=== PATIENT | male | born 1960 | race Caucasian/White ===

== ENCOUNTER 2021-04-22 09:32 | Inpatient (IN) ==
[2021-04-22] MEDS ORDERED: Ondansetron 4 MG/2 ML VIAL IVP ONE (09:55)
[2021-04-22] MEDS ORDERED: 0.9 % Sodium Chloride 1,000 ML IVC ONE (09:55)
[2021-04-22] MEDS ORDERED: *HR* Rocuronium Bromide 100 MG/10 ML VIAL IVP ONE (09:56)
[2021-04-22] MEDS ORDERED: *HR* Etomidate 20 MG/10 ML AMPUL IVP ONE (09:56)
[2021-04-22 10:12] LABS: Basophils % 0.4 %; Eosinophils # 0.1 K/mcL (0.0-0.6); Eosinophils % 0.8 %; Hematocrit 47.1 % (37.5-50.1); Hemoglobin 16.2 g/dL (12.9-16.9); Immature Granulocytes % 0.6 % (0-4); Lymphocytes # 0.5 K/mcL (0.6-4.6); Lymphocytes % 6.6 %; Mean Corpuscular HGB Conc 34.4 g/dL (31.6-35.5); Mean Corpuscular Hemoglobin 34.1 pg (28.0-33.3); Mean Corpuscular Volume 99.2 fL (83.0-100.0); Mean Platelet Volume 11.7 fL (9.4-12.4); Monocytes # 0.2 K/mcL (0.0-1.3); Monocytes % 2.3 %; Neutrophils # 7.4 K/mcL (1.6-8.9); Platelet Count 152 K/mcL (140-400); Red Blood Count 4.75 M/mcL (4.19-5.50); Red Cell Distribution Width 16.5 % (11.5-14.5); Segmented Neutrophils % 89.3 %; White Blood Count 8.2 K/mcL (4.3-11.1)
[2021-04-22 10:15] LABS: VBG HCO3 20 mEq/L (21-27); VBG PCO2 34 mmHg (41-51); VBG PH 7.37 pH Units (7.32-7.42); VBG PO2 39 mmHg (25-50)
[2021-04-22 10:20] LABS: Prothrombin Time 22.2 Seconds (9.4-12.1)
[2021-04-22 10:23] LABS: Activated Partial Thrombo Time 42.9 Seconds (26.0-36.0)
[2021-04-22 10:55] LABS: Influenza A PCR Negative (Negative); Influenza B PCR Negative (Negative); Resp. Syncytial Virus PCR Negative (Negative)
[2021-04-22 10:56] LABS: SARS-CoV-2 by PCR (In House) Negative (Negative)
[2021-04-22 11:15] LABS: Alanine Aminotransferase 878 Units/L (7-52); Albumin 2.8 g/dL (3.5-5.7); Albumin/Globulin Ratio 0.9 (1.1-2.2); Alkaline Phosphatase 237 Units/L (34-104); Aspartate Amino Transferase 702 Units/L (13-39); BUN/Creatinine Ratio 15 (6-26); Bilirubin,Direct 11.2 mg/dL (0.0-0.2); Bilirubin,Total 17.2 mg/dL (0.3-1.0); Blood Urea Nitrogen 115 mg/dL (8-23); Calcium 8.2 mg/dL (8.6-10.3); Carbon Dioxide 18 mEq/L (23-29); Chloride 94 mEq/L (98-107); Globulin 3.2 g/dL (2.4-3.5); Glucose 107 mg/dL (70-105); Lipase 180 Units/L (11-82); Osmolality,Calculated 309 (280-300); Potassium 5.3 mEq/L (3.5-5.1); Sodium 131 mEq/L (136-145); eGFR For African Americans 9 (> 60); eGFR For Non-African Americans 7 (> 60)
[2021-04-22] MEDS ORDERED: 0.9 % Sodium Chloride 2,000 ML IVC ONE (11:30)
[2021-04-22] MEDS ORDERED: Acetylcysteine 15,000 MG in D5% in Water 250 ML IVC ONE (14:39)
[2021-04-22 15:16] LABS: Acetaminophen < 10 mcg/mL (10-20); Ethanol < 10 mg/dL (Less than 10)
[2021-04-22 15:49] LABS: Hepatitis B Surface Antigen Nonreactive (Nonreactive)
[2021-04-22 15:51] LABS: Lyme Disease Total Antibody Negative (Negative)
[2021-04-22] MEDS ORDERED: Acetylcysteine 5,000 MG in D5% in Water 500 ML IVC ONE (16:00)
[2021-04-22 16:19] LABS: Hepatitis B Core IgM Nonreactive (Nonreactive); Hepatitis C Virus Antibody Nonreactive (Nonreactive)
[2021-04-22 16:20] LABS: Hepatitis A Antibody IgM Nonreactive (Nonreactive)
[2021-04-22] MEDS ORDERED: Morphine Sulfate 2 MG/ML SYRINGE IVP ONE (16:22)
[2021-04-22] MEDS ORDERED: *HR* HYDROmorphone (PF) 1 MG/ML SYRINGE IVP ONE (17:58)
[2021-04-22 18:27] LABS: Troponin I 0.23 ng/mL (< 0.04)
[2021-04-22] MEDS ORDERED: Acetylcysteine 10,000 MG in D5% in Water 1,000 ML IVC ONE (20:15)
[2021-04-22] MEDS ORDERED: Pantoprazole 40 MG VIAL IVP ONE (21:11)
[2021-04-23] MEDS ORDERED: *HR* HYDROmorphone (PF) 1 MG/ML SYRINGE IVP ONE (00:20)
[2021-04-23 05:49] LABS: Bilirubin,Urine Large (Negative); Blood,Urine Moderate (Negative); Clarity,Urine Cloudy (Clear); Glucose,Urine (UA) Normal (Normal); Ketones,Urine Trace mg/dL (Negative); Leukocyte Esterase,Urine Trace (Negative); Nitrite,Urine Negative (Negative); PH,Urine 5.5 pH Units (5.0-8.0); Protein,Urine >=300 mg/dL (Neg-Trace); Urobilinogen,Urine Normal (Normal)
[2021-04-23 05:50] LABS: Color,Urine Dark Yellow (Yellow)
[2021-04-23 05:51] LABS: Bacteria,Urine Many per hpf (None-Few); Squamous Epithelial Cell,Urine Many per hpf (None-Few)
[2021-04-23 05:52] LABS: Budding Yeast,Urine Moderate per hpf (None Seen)
[2021-04-23 05:56] LABS: Amphetamine Screen,Urine Negative ng/mL (Cutoff=1000); Barbiturate Screen,Urine Negative ng/mL (Cutoff=200); Benzodiazepines Screen,Urine Negative ng/mL (Cutoff=200); Cannabinoid Screen,Urine Negative ng/mL (Cutoff = 50); Cocaine Screen,Urine Negative ng/mL (Cutoff= 300); Opiate Screen,Urine Negative ng/mL (Cutoff=300); Phencyclidine Screen,Urine Negative ng/mL (Cutoff=25)
[2021-04-23] MEDS ORDERED: Norepinephrine 4 MG/254 ML IV.SOLN IVC SCH (07:30)
[2021-04-23] MEDS ORDERED: Piperacillin/Tazobactam 3.375 GM in 0.9 % Sodium Chloride Mini Bag 100 ML IVPB ONE (07:41)
[2021-04-23 07:42] LABS: Basophils % 0.5 %; Eosinophils % 0.1 %; Hematocrit 45.5 % (37.5-50.1); Hemoglobin 14.8 g/dL (12.9-16.9); Lymphocytes # 0.3 K/mcL (0.6-4.6); Lymphocytes % 4.1 %; Mean Corpuscular HGB Conc 32.5 g/dL (31.6-35.5); Mean Corpuscular Hemoglobin 33.7 pg (28.0-33.3); Mean Corpuscular Volume 103.6 fL (83.0-100.0); Mean Platelet Volume 11.5 fL (9.4-12.4); Monocytes # 0.4 K/mcL (0.0-1.3); Monocytes % 5.5 %; Neutrophils # 6.5 K/mcL (1.6-8.9); Platelet Count 150 K/mcL (140-400); Red Blood Count 4.39 M/mcL (4.19-5.50); Red Cell Distribution Width 17.6 % (11.5-14.5); Segmented Neutrophils % 88.8 %; White Blood Count 7.3 K/mcL (4.3-11.1)
[2021-04-23] MEDS ORDERED: Cefepime HCl 2,000 MG in Water for inj. (sterile) 10 ML IVP ONE (07:42)
[2021-04-23] MEDS ORDERED: *HR* Heparin 5,000 UNIT/ML VIAL IVP PRN ×3 (07:42→15:42)
[2021-04-23] MEDS ORDERED: *HR* Heparin 5,000 UNIT/ML VIAL IVP ONE (07:42)
[2021-04-23] MEDS ORDERED: Heparin 25,000UNIT/250ML 1/2NS 25,000 UNIT/250 ML IV.SOLN IVC SCH (07:45)
[2021-04-23 08:02] LABS: Heparin anti-factor XA UFH < 0.04 IU/mL (0.30-0.70)
[2021-04-23 08:03] LABS: INR 2.6; Prothrombin Time 28.4 Seconds (9.4-12.1)
[2021-04-23] MEDS ORDERED: Vancomycin 1,750 MG/517.5 ML IV.SOLN IVPB ONE (08:03)
[2021-04-23 08:17] LABS: Alanine Aminotransferase 760 Units/L (7-52); Albumin 2.2 g/dL (3.5-5.7); Albumin/Globulin Ratio 0.8 (1.1-2.2); Alkaline Phosphatase 199 Units/L (34-104); Aspartate Amino Transferase 533 Units/L (13-39); Blood Urea Nitrogen > 130 mg/dL (8-23); Calcium 6.7 mg/dL (8.6-10.3); Carbon Dioxide 8 mEq/L (23-29); Chloride 93 mEq/L (98-107); Globulin 2.6 g/dL (2.4-3.5); Glucose 139 mg/dL (70-105); Potassium 6.1 mEq/L (3.5-5.1); Sodium 132 mEq/L (136-145); Total Protein 4.8 g/dL (6.4-8.9); Troponin I 0.45 ng/mL (< 0.04); eGFR For African Americans 7 (> 60); eGFR For Non-African Americans 6 (> 60)
[2021-04-23 08:32] LABS: VBG HCO3 8 mEq/L (21-27); VBG PCO2 30 mmHg (41-51); VBG PH 7.03 pH Units (7.32-7.42); VBG PO2 80 mmHg (25-50)
[2021-04-23] MEDS ORDERED: Insulin Human Regular 10 UNIT in 0.9 % Sodium Chloride 10 ML IV ONE (09:05)
[2021-04-23] MEDS ORDERED: Insulin Regular, Human 100 UNIT/ML ONE (09:13)
[2021-04-23] MEDS ORDERED: FentaNYL (PF) 1,000 MCG/100 ML IV.SOLN IVC SCH (09:15)
[2021-04-23] MEDS ORDERED: *HR* Dextrose 50 % in Water (Syg) 50 ML SYRINGE IVP ONE (09:57)
[2021-04-23] MEDS ORDERED: EPINEPHrine 1 MG in D5% in Water 250 ML IVC SCH (10:00)
[2021-04-23] MEDS ORDERED: Vasopressin 40 UNIT in D5% in Water 100 ML IVC SCH (10:00)
[2021-04-23] MEDS ORDERED: Hydrocortisone Sodium Succ 100 MG/2 ML VIAL IVP ONE (10:15)
[2021-04-23] MEDS: Albumin 25% 25gram/100mL 25 GM/100 ML IV.SOLN IVC SCH ×4 (10:34→11:24)
[2021-04-23] MEDS: Norepinephrine 8 MG/258 ML IV.SOLN IVC SCH ×2 (11:15→17:27)
[2021-04-23] MEDS: Sodium Bicarbonate 150 MEQ in D5% in Water 1,000 ML IVC SCH ×2 (11:20→16:18)
[2021-04-23] MEDS ORDERED: *HR* Heparin 5,000 UNIT/ML VIAL ONE ×2 (11:50→12:32)
[2021-04-23] MEDS ORDERED: *HR* FentaNYL (PF) 100 MCG/2 ML VIAL ONE (12:00)
[2021-04-23] MEDS ORDERED: 0.9 % Sodium Chloride 1,000 ML ONE ×2 (12:39→14:40)
[2021-04-23] MEDS ORDERED: Dexmedetomidine HCl 400 MCG/100 ML MLS IVC ONE (12:59)
[2021-04-23] MEDS ORDERED: Dexmedetomidine HCl 400 MCG/100 ML MLS IVC SCH (13:00)
[2021-04-23] MEDS ORDERED: Isovue-370 500 ML BOTTLE IVP ONE (13:11)
[2021-04-23] MEDS ORDERED: Phenylephrine 10 MG in 0.9 % Sodium Chloride 250 ML IVC SCH (13:30)
[2021-04-23 13:43] LABS: Hematocrit 34.9 % (37.5-50.1); Mean Corpuscular HGB Conc 32.7 g/dL (31.6-35.5); Mean Corpuscular Hemoglobin 34.2 pg (28.0-33.3); Mean Corpuscular Volume 104.8 fL (83.0-100.0); Mean Platelet Volume 11.5 fL (9.4-12.4); Nucleated Red Blood Cells 1.6 /100 WBC (0); Platelet Count 115 K/mcL (140-400); Red Blood Count 3.33 M/mcL (4.19-5.50); Red Cell Distribution Width 17.2 % (11.5-14.5); White Blood Count 3.8 K/mcL (4.3-11.1)
[2021-04-23 13:44] LABS: Hemoglobin 11.4 g/dL (12.9-16.9)
[2021-04-23 13:56] LABS: VBG HCO3 13 mEq/L (21-27); VBG Ionized Calcium 0.74 mmol/L (1.15-1.35); VBG PCO2 48 mmHg (41-51); VBG PH 7.03 pH Units (7.32-7.42); VBG PO2 73 mmHg (25-50)
[2021-04-23] MEDS ORDERED: Piperacillin/Tazobactam 3.375 GM in 0.9 % Sodium Chloride Mini Bag 100 ML IVPB SCH (14:00)
[2021-04-23] MEDS ORDERED: Calcium Gluconate 1gm/50mL 1 GM/50 ML BAG IVPB ONE (14:10)
[2021-04-23 14:17] LABS: Activated Partial Thrombo Time > 360.0 Seconds (26.0-36.0); INR 5.1; Prothrombin Time 56.3 Seconds (9.4-12.1)
[2021-04-23 14:18] LABS: D-Dimer 20329 ng/mLFEU (0-500)
[2021-04-23 14:26] LABS: Lymphocytes # 1.4 K/mcL (0.6-4.6); Monocytes # 0.2 K/mcL (0.0-1.3); Neutrophils # 2.3 K/mcL (1.6-8.9); Platelet Estimate Decreased (Normal)
[2021-04-23 14:36] LABS: Acetaminophen < 10 mcg/mL (10-20); Alanine Aminotransferase 708 Units/L (7-52); Albumin 3.2 g/dL (3.5-5.7); Alkaline Phosphatase 174 Units/L (34-104); Aspartate Amino Transferase 701 Units/L (13-39); BUN/Creatinine Ratio 13 (6-26); Bilirubin,Direct 7.1 mg/dL (0.0-0.2); Bilirubin,Indirect 4.2 mg/dL (0.0-1.0); Bilirubin,Total 11.3 mg/dL (0.3-1.0); Blood Urea Nitrogen 126 mg/dL (8-23); Carbon Dioxide 12 mEq/L (23-29); Chloride 91 mEq/L (98-107); Ethanol < 10 mg/dL (Less than 10); Ferritin > 1500 ng/mL (20-250); Globulin 1.6 g/dL (2.4-3.5); Glucose 142 mg/dL (70-105); Lipase 491 Units/L (11-82); Magnesium 3.2 mg/dL (1.6-2.6); Osmolality,Calculated 323 (280-300); Phosphorous 12.8 mg/dL (2.7-4.5); Potassium 6.9 mEq/L (3.5-5.1); Salicylate < 2.5 mg/dL (15.0-30.0); Sodium 135 mEq/L (136-145); Total Protein 4.8 g/dL (6.4-8.9); eGFR For African Americans 7 (> 60); eGFR For Non-African Americans 6 (> 60)
[2021-04-23] MEDS ORDERED: Calcium Chloride 1,000 MG in 0.9 % Sodium Chloride 100 ML IVPB ONE (14:57)
[2021-04-23 15:16] LABS: Activated Partial Thrombo Time > 360.0 Seconds (26.0-36.0); Prothrombin Time 55.5 Seconds (9.4-12.1)
[2021-04-23 15:17] LABS: D-Dimer 20754 ng/mLFEU (0-500)
[2021-04-23] MEDS ORDERED: Phenylephrine 50 MG in 0.9 % Sodium Chloride 250 ML IVC SCH (15:30)
[2021-04-23] MEDS ORDERED: Calcium Gluconate 1gm/50mL 1 GM/50 ML BAG IVPB PRN ×2 (15:42)
[2021-04-23] MEDS ORDERED: Calcium Chloride 4,000 MG in 0.9 % Sodium Chloride 1,000 ML CRRT SCH (15:45)
[2021-04-23] MEDS ORDERED: SODIUM CITRATE 500 ML CRRT SCH (15:45)
[2021-04-23] MEDS ORDERED: CALCIUM CHLORIDE CRRT SCH (15:45)
[2021-04-23] MEDS ORDERED: PRISMASATE BGK CRRT SCH (15:45)
[2021-04-23] MEDS ORDERED: Calcium Chloride 2,000 MG in 0.9 % Sodium Chloride 100 ML IVPB ONE (15:46)
[2021-04-23] MEDS ORDERED: Meropenem 500 MG in 0.9 % Sodium Chloride Mini Bag 100 ML IVPB SCH (16:00)
[2021-04-23] MEDS ORDERED: EPINEPHrine 5 MG in D5% in Water 250 ML IVC SCH (16:00)
[2021-04-23] MEDS ORDERED: Sodium Bicarbonate 150 MEQ in D5% in Water 1,000 ML IVC SCH (16:30)
[2021-04-23] MEDS ORDERED: 0.9 % Sodium Chloride 500 ML ONE ×2 (16:54→17:11)
[2021-04-23 16:56] LABS: VBG HCO3 16 mEq/L (21-27); VBG PCO2 38 mmHg (41-51); VBG PH 7.24 pH Units (7.32-7.42); VBG PO2 82 mmHg (25-50)
[2021-04-23] MEDS: 0.9 % Sodium Chloride 1,000 ML PRIME SCH ×4 (17:06→18:50)
[2021-04-23 17:45] VITALS: TEMP 96
[2021-04-23] MEDS ORDERED: Ondansetron 4 MG/2 ML VIAL IVP PRN (18:04)
[2021-04-23] MEDS ORDERED: *HR* FentaNYL (PF) 100 MCG/2 ML VIAL IVP PRN (18:04)
[2021-04-23 18:10] VITALS: BP 50/15; PULSE 105; O2SAT 90
[2021-04-23] MEDS ORDERED: *HR* LORazepam 2 MG/ML VIAL IVP ONE (18:15)
[2021-04-23] MEDS ORDERED: *HR* LORazepam 2 MG/ML VIAL IVP PRN (18:54)
[2021-04-25 07:05] LABS: HSV 2 Glycoprotein G IgG 0.12 IV (<=0.89)
== END 2021-04-23 18:59 | disposition expired | DRG 441 ==
LOC: EMEROOARM 09:32 → ICNU 04-23 13:36
PROVIDERS: ADMIT Family Medicine; ATTEND Family Medicine